=== PATIENT | male | born 1995 | race Caucasian/White ===

== ENCOUNTER 2017-05-04 23:58 | Emergency (ER) | payer SELFPAY ==
[~2017-05-04] VITALS: Ht 185.4 cm; Wt 97.3 kg
[2017-05-05 00:04] VITALS: BP 182/101; TEMP 98.4
[2017-05-05] MEDS ORDERED: PROAIR HFA0.09 MG/AC IH (00:09)
[2017-05-05 01:22] VITALS: PULSE 98
== END 2017-05-05 01:23 | disposition home or self-care (01) ==
LOC: COL.ER 23:58
DX: F41.0 Panic disorder [episodic paroxysmal anxiety] (principal); J45.990 Exercise induced bronchospasm
CPT/HCPCS: J2060

== ENCOUNTER → 2019-04-18 | Outpatient (CLI) | payer BC ==
[~2019-04-18] MED LIST: PROAIR HFA0.09 MG/AC IH
== END ==
LOC: COL.RAD 09:41
DX: D17.1 Benign lipomatous neoplasm of skin and subcutaneous tissue of trunk (principal)